=== PATIENT | female | born 1960 ===

== ENCOUNTER → 2020-02-22 | Outpatient (CLI) | payer SELFPAY ==
--- NOTE | 2020-02-22 14:38 | Diagnostic Imaging Report ---
EXAMINATION: Magnetic resonance imaging of the right shoulder without contrast. DATE: February 22, 2020. COMPARISON: None. HISTORY: 60-year-old female, right shoulder pain. TECHNIQUE: Magnetic Resonance Imaging sequences were performed of the shoulder without contrast. FINDINGS: ROTATOR CUFF, LIGAMENTS, TENDONS, AND MUSCLES: There is a 4 mm wide full-thickness tear of the supraspinatus tendon with tear measuring 4 mm in medial to lateral extent. There is supraspinatus and infraspinatus tendinopathy. The teres minor tendon is intact. The subscapularis tendon is intact. There is normal rotator cuff muscle bulk and signal. LONG HEAD OF BICEPS: The biceps labral attachment and long head of the biceps tendon is intact. The long head of the biceps tendon is normally positioned within the bicipital groove. GLENOHUMERAL JOINT: The humeral head is well positioned relative to the glenoid. The labrum is grossly intact. There is no identified paralabral cyst. The articular cartilage is grossly intact. There is no joint effusion. ACROMIOCLAVICULAR JOINT: The acromioclavicular joint is normally aligned. The coracoclavicular and coracoacromial ligaments are intact. There are mild acromioclavicular degenerative changes without undersurface osteophyte. BONE: The bones all have normal configuration. The bone marrow signal is within normal limits. Specifically, negative for fracture, osteomyelitis, osteonecrosis, or marrow replacing process. BURSAE AND SOFT TISSUES: There is a small amount of fluid in the subacromial subdeltoid bursa consistent with the full-thickness rotator cuff tendon tear, bursitis, and/or recent injection. IMPRESSION: 1. 4 mm wide full-thickness tear of the supraspinatus tendon at its anterior leading edge. Supraspinatus and infraspinatus tendinopathy. No fatty muscle atrophy. 2. Mild acromioclavicular degenerative changes without undersurface osteophyte. 3. Grossly intact labrum and unremarkable additional glenohumeral joint assessment. 4. Intact proximal long head of the biceps tendon. 5. No acute fracture, bone contusion, or evidence of osteonecrosis. 6. Fluid in the subacromial subdeltoid bursa consistent with the full-thickness rotator cuff tendon tear, bursitis, and/or recent injection. Dictated by: Dictated on workstation # [id number]
== END ==
LOC: RAD 11:00
PROVIDERS: ATTEND Nurse Practitioner
DX: M75.111 Incomplete rotator cuff tear or rupture of right shoulder, not specified as traumatic (principal); M19.011 Primary osteoarthritis, right shoulder
CPT/HCPCS: 73221